=== PATIENT | female | born 1950 | race Caucasian/White ===

== ENCOUNTER → 2016-12-03 | Outpatient (CLI) | payer BC | LOC: MC.RAD 11:12 | DX: Z12.31 Encounter for screening mammogram for malignant neoplasm of breast (principal); D24.2 Benign neoplasm of left breast; D24.1 Benign neoplasm of right breast ==

== ENCOUNTER 2021-08-29 12:12 | Emergency (ER) | payer OTHER, BC ==
[~2021-08-29] VITALS: Ht 165.1 cm; Wt 76.4 kg
[2021-08-29 12:13] VITALS: TEMP 98.6
[2021-08-29 13:47] VITALS: BP 146/76; PULSE 82
== END 2021-08-29 13:47 | disposition home or self-care (01) ==
LOC: COL.ER 12:12
DX: S40.011A Contusion of right shoulder, initial encounter (principal); V49.40XA Driver injured in collision with unspecified motor vehicles in traffic accident, initial encounter